=== PATIENT | male | born 1975 | race Caucasian/White ===

== ENCOUNTER 2019-09-21 11:48 | Emergency (ER) | payer OTHER ==
[~2019-09-21] VITALS: Ht 175.3 cm; Wt 74.8 kg
[~2019-09-21 11:48] MED LIST: AMOX500; CYCL10 PO; DICMIS75EC PO; DOXY100 PO; HUMALOG; HYDACE5 PO; HYDACE5325 PO; HYDR1TAB94 PO; IBUP200; IBUP800 PO; INS70/30PN SC; INSUASPI SC; INSULANI; INSULANI SQ; INSULANPEN SC; LISI20 PO; LISI5 PO; METO50ER PO; NAPR550; Novolog100 UNIT/2 SC; ONDA4ODT SL; OXAYDO7.5 MG PO; OXYC5 PO; Percocet 7.5-31 EACH PO; RXHYD5325 PO; SODBIC650 PO; TRAM50 PO
[2019-09-21] MEDS ORDERED: NORTRIPTYLINE H10 MG PO (12:01)
[2019-09-21 13:10] LABS: BASOPHILS ABSOLUTE AUTO 0.05 K/mm3 (0.00-0.23); BASOPHILS PERCENT AUTO 1 % (0-2); EOSINOPHILS ABSOLUTE AUTO 0.09 K/mm3 (0.00-0.68); EOSINOPHILS PERCENT AUTO 1 % (0-6); Hematocrit 45.2 % (37.0-53.0); IMMATURE GRAN ABSOLUTE AUTO 0.03 K/mm3 (0.00-0.10); IMMATURE GRAN PERCENT AUTO 0 % (0-1); LYMPHOCYTES ABSOLUTE AUTO 2.08 K/mm3 (0.84-5.20); LYMPHOCYTES PERCENT AUTO 24 % (21-46); MONOCYTES ABSOLUTE AUTO 0.57 K/mm3 (0.16-1.47); MONOCYTES PERCENT AUTO 7 % (4-13); Mean Corpuscular HGB 27.6 pg (26.0-34.0); Mean Corpuscular HGB Conc 33.2 g/dL (31.5-36.5); Mean Corpuscular Volume 83 fL (80-100); Mean Platelet Volume 11.3 fL (9.1-12.4); NEUTROPHILS ABSOLUTE AUTO 5.81 K/mm3 (1.96-9.15); NEUTROPHILS PERCENT AUTO 67 % (41-73); Platelet Count 335 K/mm3 (150-400); RDW Coefficient Variation 11.9 % (11.7-14.2); RDW Standard Deviation 35.8 fL (35.1-46.3); Red Blood Cell Count 5.43 M/mm3 (4.30-5.90); White Blood Cell Count 8.63 K/mm3 (4.00-11.30)
[2019-09-21 13:33] LABS: Alanine Aminotransfer (ALT/SGP 85 U/L (12-78); Albumin, Blood 4.2 g/dL (3.4-5.0); Alk Phos 120 U/L (50-136); Anion Gap 4 mmol/L (6-16); Aspartate Aminotrans (AST/SGOT 56 U/L (12-37); Bilirubin, Total 0.5 mg/dL (0.1-1.0); Blood Urea Nitrogen 16 mg/dL (8-24); Bun/Creatinine Ratio 19.9 (12.0-20.0); CO2, Blood 27 mmol/L (21-32); Calcium, Blood 9.4 mg/dL (8.5-10.1); Chloride, Blood 104 mmol/L (98-108); Creatinine, Blood 0.81 mg/dL (0.60-1.20); Glomerular Filtration Rate >60 (60-); Glucose, Blood 290 mg/dL (70-99); Potassium, Blood 4.5 mmol/L (3.5-5.5); Sodium, Blood 135 mmol/L (136-145); Total Protein, Blood 8.2 g/dL (6.4-8.2); Troponin I <0.015 ng/mL (0.000-0.040)
== END 2019-09-21 16:02 | disposition home or self-care (01) ==
LOC: ER 11:48
PROVIDERS: Emergency Medicine
DX: S22.32XA Fracture of one rib, left side, initial encounter for closed fracture (principal); E11.9 Type 2 diabetes mellitus without complications; F17.220 Nicotine dependence, chewing tobacco, uncomplicated; Z79.899 Other long term (current) drug therapy; W19.XXXA Unspecified fall, initial encounter
CPT/HCPCS: 36415; 71046; 80053; 84484; 85025; 85379; 93005; 93010; 99284-25

== ENCOUNTER → 2020-02-09 | Outpatient (CLI) | payer OTHER ==
[~2020-02-09] MED LIST changes: +NORTRIPTYLINE H10 MG PO
== END | disposition home or self-care (01) ==
LOC: LAB SRC 10:00 → LAB SHORT 10:00
DX: E10.65 Type 1 diabetes mellitus with hyperglycemia (principal)
CPT/HCPCS: 82043

== ENCOUNTER 2020-03-06 15:29 | Emergency (ER) | payer OTHER ==
[~2020-03-06] VITALS: Ht 175.3 cm; Wt 79.4 kg
[2020-03-06] MEDS ORDERED: Norco 5-325 Ta1 EACH PO (18:29)
[2020-03-06] MEDS ORDERED: CYCL10 PO (18:29)
== END 2020-03-06 18:45 | disposition home or self-care (01) ==
LOC: ER 15:29
DX: M54.5 Low back pain (principal); E11.40 Type 2 diabetes mellitus with diabetic neuropathy, unspecified; F17.220 Nicotine dependence, chewing tobacco, uncomplicated; Z79.899 Other long term (current) drug therapy
CPT/HCPCS: 72100; 96372; 99283-25; A9270; A9270-GY; J1885

== ENCOUNTER 2020-03-23 02:04 | Emergency (ER) | payer OTHER ==
[~2020-03-23] VITALS: Ht 175.3 cm; Wt 79.8 kg
[~2020-03-23 02:04] MED LIST changes: +Norco 5-325 Ta1 EACH PO
[2020-03-23] MEDS ORDERED: PRAMIPEXOLE0.125 MG PO (02:28)
[2020-03-23] MEDS ORDERED: ATOR80 PO (02:28)
[2020-03-23] MEDS ORDERED: BISOPROLOL-HCT1 EACH PO (02:28)
[2020-03-23] MEDS ORDERED: HUMALOG100 UNIT/1 (02:29)
[2020-03-23] MEDS ORDERED: GABA300 PO (02:29)
[2020-03-23] MEDS ORDERED: BASAGLAR K100 UNIT/7 SQ (02:29)
[2020-03-23] MEDS ORDERED: AMOCLA875 PO (03:10)
[2020-07-03] MEDS ORDERED: Norco 5-325 Ta1 EACH PO (22:12)
[2020-07-03] MEDS ORDERED: ONDA4ODT MM (22:12)
== END 2020-03-23 03:35 | disposition home or self-care (01) ==
LOC: ER 02:04
DX: K02.9 Dental caries, unspecified (principal); K08.89 Other specified disorders of teeth and supporting structures; E11.9 Type 2 diabetes mellitus without complications; I10 Essential (primary) hypertension; F17.220 Nicotine dependence, chewing tobacco, uncomplicated; Z79.899 Other long term (current) drug therapy; Z79.4 Long term (current) use of insulin
CPT/HCPCS: 96372; 99283-25; A9270; J1885

== ENCOUNTER 2020-04-13 07:36 | Emergency (ER) | payer OTHER ==
[~2020-04-13] VITALS: Ht 175.3 cm; Wt 81.2 kg
[~2020-04-13 07:36] MED LIST changes: +AMOCLA875 PO; +ATOR80 PO; +BASAGLAR K100 UNIT/7 SQ; +BISOPROLOL-HCT1 EACH PO; +GABA300 PO; +HUMALOG100 UNIT/1; +PRAMIPEXOLE0.125 MG PO
[2020-04-13] MEDS ORDERED: HYDR1TAB94 PO (07:52)
[2020-07-03] MEDS ORDERED: Norco 5-325 Ta1 EACH PO (22:12)
[2020-07-03] MEDS ORDERED: ONDA4ODT MM (22:12)
== END 2020-04-13 08:20 | disposition home or self-care (01) ==
LOC: ER 07:36
DX: K08.89 Other specified disorders of teeth and supporting structures (principal); I10 Essential (primary) hypertension; E11.40 Type 2 diabetes mellitus with diabetic neuropathy, unspecified; F17.220 Nicotine dependence, chewing tobacco, uncomplicated; Z79.4 Long term (current) use of insulin; Z79.899 Other long term (current) drug therapy
CPT/HCPCS: 99282; A9270

== ENCOUNTER 2020-06-15 07:18 | Day surgery (SDC) | payer OTHER ==
[~2020-06-15] VITALS: Ht 175.3 cm; Wt 79.3 kg
== END 2020-06-15 09:20 | disposition home or self-care (01) ==
LOC: ORSCSDS 07:18
PROC: 0DB98ZX Excision of Duodenum, Via Natural or Artificial Opening Endoscopic, Diagnostic (ICD-10-PCS; principal; 2020-06-15)
PROC: 0DB48ZX Excision of Esophagogastric Junction, Via Natural or Artificial Opening Endoscopic, Diagnostic (ICD-10-PCS; principal; 2020-06-15)
DX: K90.0 Celiac disease (principal); K21.9 Gastro-esophageal reflux disease without esophagitis; E10.40 Type 1 diabetes mellitus with diabetic neuropathy, unspecified; E10.319 Type 1 diabetes mellitus with unspecified diabetic retinopathy without macular edema; Z79.4 Long term (current) use of insulin; E78.5 Hyperlipidemia, unspecified; I10 Essential (primary) hypertension; Z79.899 Other long term (current) drug therapy; G47.33 Obstructive sleep apnea (adult) (pediatric); I25.10 Atherosclerotic heart disease of native coronary artery without angina pectoris; F17.220 Nicotine dependence, chewing tobacco, uncomplicated
CPT/HCPCS: 82947; 88305; 88312; J0330; J0461; J2250; J2405; J2704; J7120

== ENCOUNTER 2020-07-07 15:15 | Emergency (ER) | payer OTHER ==
[~2020-07-07] VITALS: Ht 175.3 cm; Wt 78.0 kg
[~2020-07-07 15:15] MED LIST changes: +ONDA4ODT MM
[2020-07-07 15:51] LABS: BASOPHILS ABSOLUTE AUTO 0.04 K/mm3 (0.00-0.23); BASOPHILS PERCENT AUTO 1 % (0-2); EOSINOPHILS ABSOLUTE AUTO 0.07 K/mm3 (0.00-0.68); EOSINOPHILS PERCENT AUTO 1 % (0-6); Hematocrit 44.6 % (37.0-53.0); Hemoglobin 15.1 g/dL (13.5-17.5); IMMATURE GRAN ABSOLUTE AUTO 0.01 K/mm3 (0.00-0.10); IMMATURE GRAN PERCENT AUTO 0 % (0-1); LYMPHOCYTES ABSOLUTE AUTO 1.54 K/mm3 (0.84-5.20); LYMPHOCYTES PERCENT AUTO 25 % (21-46); MONOCYTES PERCENT AUTO 7 % (4-13); Mean Corpuscular HGB 28.4 pg (26.0-34.0); Mean Corpuscular HGB Conc 33.9 g/dL (31.5-36.5); Mean Corpuscular Volume 84 fL (80-100); Mean Platelet Volume 11.6 fL (9.1-12.4); NEUTROPHILS ABSOLUTE AUTO 4.13 K/mm3 (1.96-9.15); NEUTROPHILS PERCENT AUTO 67 % (41-73); Platelet Count 314 K/mm3 (150-400); RDW Coefficient Variation 11.9 % (11.7-14.2); RDW Standard Deviation 36.4 fL (35.1-46.3); Red Blood Cell Count 5.31 M/mm3 (4.30-5.90); White Blood Cell Count 6.19 K/mm3 (4.00-11.30)
[2020-07-07 16:22] LABS: Alanine Aminotransfer (ALT/SGP 39 U/L (12-78); Albumin, Blood 3.6 g/dL (3.4-5.0); Albumin/Globulin Ratio 0.9 (0.8-1.8); Alk Phos 86 U/L (50-136); Anion Gap 6 mmol/L (6-16); Aspartate Aminotrans (AST/SGOT 20 U/L (12-37); Bilirubin, Total 0.3 mg/dL (0.1-1.0); Blood Urea Nitrogen 10 mg/dL (8-24); Bun/Creatinine Ratio 12.1 (12.0-20.0); CO2, Blood 26 mmol/L (21-32); Calcium, Blood 8.9 mg/dL (8.5-10.1); Chloride, Blood 105 mmol/L (98-108); Creatinine, Blood 0.83 mg/dL (0.60-1.20); Globulin, Blood 3.9 g/dL (2.2-4.0); Glomerular Filtration Rate >60 (60-); Glucose, Blood 267 mg/dL (70-99); Potassium, Blood 4.4 mmol/L (3.5-5.5); Sodium, Blood 137 mmol/L (136-145); Total Protein, Blood 7.5 g/dL (6.4-8.2)
[2020-07-07] MEDS ORDERED: Amlodipine Besy10 MG PO (16:51)
[2020-07-07 17:07] LABS: Source, Urine Clean Catch
[2020-07-07] MEDS ORDERED: ONDA4ODT MM (17:08)
[2020-07-07 17:10] LABS: Appearance, Urine Clear (Clear); Bilirubin, Urine Neg (Neg); Blood, Urine Neg (Neg); Color, Urine Yellow (P-Yellow); Glucose Qualitative, Urine 4+ (Neg); Ketones, Urine 1+ (Neg); Leukocyte Esterase, Urine Neg (Neg); Nitrite, Urine Neg (Neg); Protein, Urine Neg (Neg); Urobilinogen, Urine 1+ (Normal)
== END 2020-07-07 17:39 | disposition home or self-care (01) ==
LOC: ER 15:15
PROVIDERS: Physician Assistant
DX: K85.90 Acute pancreatitis without necrosis or infection, unspecified (principal); E10.40 Type 1 diabetes mellitus with diabetic neuropathy, unspecified; I10 Essential (primary) hypertension; F17.220 Nicotine dependence, chewing tobacco, uncomplicated; Z88.6 Allergy status to analgesic agent; Z79.4 Long term (current) use of insulin; Z79.899 Other long term (current) drug therapy
CPT/HCPCS: 36415; 80053; 81003; 82947; 83690; 85025; 96374; 99284-25; J2405; J7030

== ENCOUNTER 2021-01-02 17:30 | Emergency (ER) | payer OTHER ==
[~2021-01-02] VITALS: Ht 175.3 cm; Wt 82.5 kg
[~2021-01-02 17:30] MED LIST changes: +Amlodipine Besy10 MG PO
[2021-01-02 18:06] LABS: BASOPHILS ABSOLUTE AUTO 0.06 K/mm3 (0.00-0.23); BASOPHILS PERCENT AUTO 1 % (0-2); EOSINOPHILS ABSOLUTE AUTO 0.05 K/mm3 (0.00-0.68); EOSINOPHILS PERCENT AUTO 1 % (0-6); Hematocrit 47.3 % (37.0-53.0); IMMATURE GRAN ABSOLUTE AUTO 0.05 K/mm3 (0.00-0.10); IMMATURE GRAN PERCENT AUTO 1 % (0-1); LYMPHOCYTES ABSOLUTE AUTO 1.97 K/mm3 (0.84-5.20); LYMPHOCYTES PERCENT AUTO 18 % (21-46); MONOCYTES ABSOLUTE AUTO 0.58 K/mm3 (0.16-1.47); MONOCYTES PERCENT AUTO 5 % (4-13); Mean Corpuscular HGB 28.6 pg (26.0-34.0); Mean Corpuscular HGB Conc 33.8 g/dL (31.5-36.5); Mean Corpuscular Volume 85 fL (80-100); NEUTROPHILS ABSOLUTE AUTO 8.18 K/mm3 (1.96-9.15); NEUTROPHILS PERCENT AUTO 75 % (41-73); Platelet Count 345 K/mm3 (150-400); RDW Standard Deviation 36.1 fL (35.1-46.3); White Blood Cell Count 10.89 K/mm3 (4.00-11.30)
[2021-01-02] MEDS ORDERED: Aspir 8181 MG PO (18:14)
[2021-01-02 18:32] LABS: Alanine Aminotransfer (ALT/SGP 147 U/L (12-78); Albumin, Blood 3.8 g/dL (3.4-5.0); Albumin/Globulin Ratio 0.9 (0.8-1.8); Alk Phos 132 U/L (50-136); Anion Gap 7 mmol/L (6-16); Aspartate Aminotrans (AST/SGOT 79 U/L (12-37); Bilirubin, Total 0.4 mg/dL (0.1-1.0); Blood Urea Nitrogen 19 mg/dL (8-24); Bun/Creatinine Ratio 19.4 (12.0-20.0); CO2, Blood 25 mmol/L (21-32); Calcium, Blood 9.6 mg/dL (8.5-10.1); Chloride, Blood 103 mmol/L (98-108); Creatinine, Blood 0.98 mg/dL (0.60-1.20); Globulin, Blood 4.1 g/dL (2.2-4.0); Glomerular Filtration Rate >60 (60-); Glucose, Blood 314 mg/dL (70-99); Potassium, Blood 4.6 mmol/L (3.5-5.5); Sodium, Blood 135 mmol/L (136-145); Total Protein, Blood 7.9 g/dL (6.4-8.2)
[2021-01-02] MEDS ORDERED: OXYACE7.5T PO (19:00)
[2021-01-02] MEDS ORDERED: ONDA4ODT MM (19:00)
== END 2021-01-02 19:43 | disposition home or self-care (01) ==
LOC: ER 17:30
PROVIDERS: Physician Assistant
DX: K85.90 Acute pancreatitis without necrosis or infection, unspecified (principal); F17.220 Nicotine dependence, chewing tobacco, uncomplicated; E78.5 Hyperlipidemia, unspecified; E10.40 Type 1 diabetes mellitus with diabetic neuropathy, unspecified; I10 Essential (primary) hypertension; Z79.899 Other long term (current) drug therapy
CPT/HCPCS: 36415; 71045; 80053; 83690; 85025; 93005; 93010; 96374; 96375; 99284-25; A9270; J1170; J2405; J3010; J7030

== ENCOUNTER 2021-06-23 17:07 | Emergency (ER) | payer OTHER ==
[~2021-06-23] VITALS: Ht 175.3 cm; Wt 78.9 kg
[~2021-06-23 17:07] MED LIST changes: +Aspir 8181 MG PO; +OXYACE7.5T PO
[2021-06-23] MEDS ORDERED: Voltaren100 GM TOP (18:28)
[2021-06-23] MEDS ORDERED: LORA.5 PO (18:28)
[2021-06-23] MEDS ORDERED: Robaxin750 MG PO (18:28)
== END 2021-06-23 18:37 | disposition home or self-care (01) ==
LOC: ER 17:07
DX: S46.811A Strain of other muscles, fascia and tendons at shoulder and upper arm level, right arm, initial encounter (principal); I10 Essential (primary) hypertension; E11.40 Type 2 diabetes mellitus with diabetic neuropathy, unspecified; E78.5 Hyperlipidemia, unspecified; F17.220 Nicotine dependence, chewing tobacco, uncomplicated; Z88.5 Allergy status to narcotic agent; Z79.899 Other long term (current) drug therapy; Z79.4 Long term (current) use of insulin; Z79.82 Long term (current) use of aspirin; X58.XXXA Exposure to other specified factors, initial encounter
CPT/HCPCS: 96372; 99282-25; A9270; J1885

== ENCOUNTER 2022-11-18 01:35 | Emergency (ER) | payer OTHER ==
[~2022-11-18] VITALS: Ht 175.3 cm; Wt 77.6 kg
[~2022-11-18 01:35] MED LIST changes: +LORA.5 PO; +Robaxin750 MG PO; +Voltaren100 GM TOP
[2022-11-18 02:21] LABS: BASOPHILS ABSOLUTE AUTO 0.06 K/mm3 (0.00-0.23); BASOPHILS PERCENT AUTO 1 % (0-2); EOSINOPHILS ABSOLUTE AUTO 0.03 K/mm3 (0.00-0.68); EOSINOPHILS PERCENT AUTO 0 % (0-6); Hematocrit 45.3 % (37.0-53.0); Hemoglobin 15.6 g/dL (13.5-17.5); IMMATURE GRAN ABSOLUTE AUTO 0.02 K/mm3 (0.00-0.10); IMMATURE GRAN PERCENT AUTO 0 % (0-1); LYMPHOCYTES ABSOLUTE AUTO 2.17 K/mm3 (0.84-5.20); LYMPHOCYTES PERCENT AUTO 32 % (21-46); MONOCYTES ABSOLUTE AUTO 0.38 K/mm3 (0.16-1.47); MONOCYTES PERCENT AUTO 6 % (4-13); Mean Corpuscular HGB 28.7 pg (26.0-34.0); Mean Corpuscular HGB Conc 34.4 g/dL (31.5-36.5); Mean Corpuscular Volume 83 fL (80-100); Mean Platelet Volume 11.2 fL (9.1-12.4); NEUTROPHILS ABSOLUTE AUTO 4.16 K/mm3 (1.96-9.15); NEUTROPHILS PERCENT AUTO 61 % (41-73); Platelet Count 342 K/mm3 (150-400); RDW Coefficient Variation 12.8 % (11.7-14.2); RDW Standard Deviation 38.2 fL (35.1-46.3); Red Blood Cell Count 5.44 M/mm3 (4.30-5.90); White Blood Cell Count 6.82 K/mm3 (4.00-11.30)
[2022-11-18 02:37] LABS: Albumin/Globulin Ratio 1.1 (0.8-1.8); Bilirubin, Total 0.2 mg/dL (0.1-1.0); Bun/Creatinine Ratio 13.9 (12.0-20.0); Calcium, Blood 8.7 mg/dL (8.5-10.1); Creatinine, Blood 0.79 mg/dL (0.60-1.20); Globulin, Blood 3.7 g/dL (2.2-4.0); Potassium, Blood 4.2 mmol/L (3.5-5.5); Total Protein, Blood 7.7 g/dL (6.4-8.2)
[2022-11-18 04:00] VITALS: BP 151/88
== END 2022-11-18 04:53 | disposition home or self-care (01) ==
LOC: ER 01:35
PROVIDERS: Emergency Medicine
DX: R53.83 Other fatigue (principal); I10 Essential (primary) hypertension; E11.9 Type 2 diabetes mellitus without complications; F17.220 Nicotine dependence, chewing tobacco, uncomplicated; Z88.5 Allergy status to narcotic agent; Z79.4 Long term (current) use of insulin; Z79.82 Long term (current) use of aspirin; Z79.899 Other long term (current) drug therapy
CPT/HCPCS: 80053; 82947; 83690; 84484; 85025; 93005; 93010; 99284-25

== ENCOUNTER 2023-02-18 22:12 | Emergency (ER) | payer OTHER ==
[~2023-02-18] VITALS: Ht 175.3 cm; Wt 77.1 kg
[2023-02-19 01:05] VITALS: BP 128/74
== END 2023-02-19 01:06 | disposition home or self-care (01) ==
LOC: ER 22:12
DX: S01.81XA Laceration without foreign body of other part of head, initial encounter (principal); E11.9 Type 2 diabetes mellitus without complications; I10 Essential (primary) hypertension; F17.220 Nicotine dependence, chewing tobacco, uncomplicated; Z88.5 Allergy status to narcotic agent; Z79.899 Other long term (current) drug therapy; Z79.4 Long term (current) use of insulin; Z79.82 Long term (current) use of aspirin; Z23 Encounter for immunization; X58.XXXA Exposure to other specified factors, initial encounter
CPT/HCPCS: 12013; 70450; 72125; 90471; 90714; 99284-25; A9270

== ENCOUNTER 2024-08-09 07:46 | Day surgery (SDC) | payer OTHER ==
[~2024-08-09] VITALS: Ht 175.3 cm; Wt 67.1 kg
[~2024-08-09 07:46] MED LIST changes: +Crestor40 MG PO; +NS 500 ML IV ONE; +[UNRECOGNIZED DRUG - OTHER]
[2024-08-09] MEDS ORDERED: NS 500 ML IV ONE (08:07)
[2024-08-09] MEDS ORDERED: Bisoprolol Fuma10 MG PO (08:09)
[2024-08-09] MEDS ORDERED: PRAM.125 PO (08:10)
[2024-08-09] MEDS ORDERED: CeFAZolin Sodium 2,000 MG VIAL ONE (08:25)
[2024-08-09] MEDS ORDERED: propofoL 20 ML IV ONE ×2 (08:37→09:03)
[2024-08-09] MEDS ORDERED: Lidocaine 1%-Epineph 1:200000 30 ML SDV INJ ONE (09:07)
[2024-08-09] MEDS ORDERED: Sodium Bicarb 8.4% Inj 1 MEQ/ML 10ML Vial XX ONE (09:07)
--- NOTE | 2024-08-09 09:28 | NUR ---
08/09/24 0928 FranklinRg pretty PT DIFFICULT TO AROUSE. BS CHECKED AND IS 89 AT 0927.
[2024-08-09 09:35] VITALS: BP 102/60
== END 2024-08-09 10:05 | disposition home or self-care (01) ==
LOC: ORSCSDS 07:46
PROVIDERS: Orthopaedic Surgery
PROC: 01N54ZZ Release Median Nerve, Percutaneous Endoscopic Approach (ICD-10-PCS; principal; 2024-08-09 09:05)
DX: G56.03 Carpal tunnel syndrome, bilateral upper limbs (principal); E10.42 Type 1 diabetes mellitus with diabetic polyneuropathy; E78.5 Hyperlipidemia, unspecified; I10 Essential (primary) hypertension; K21.9 Gastro-esophageal reflux disease without esophagitis; F17.210 Nicotine dependence, cigarettes, uncomplicated; Z79.4 Long term (current) use of insulin; Z79.82 Long term (current) use of aspirin; Z79.899 Other long term (current) drug therapy
CPT/HCPCS: 82947; J0690; J2704; J7040

== ENCOUNTER 2024-09-20 08:06 | Day surgery (SDC) | payer OTHER ==
[~2024-09-20] VITALS: Ht 175.3 cm; Wt 66.5 kg
[~2024-09-20 08:06] MED LIST changes: +Bisoprolol Fuma10 MG PO; +NS 500 ML ONE; +PRAM.125 PO
[2024-09-20] MEDS ORDERED: CeFAZolin Sodium 2,000 MG VIAL ONE (08:19)
[2024-09-20] MEDS ORDERED: Midazolam HCl 1MG / ML 2ML Vial ONE (08:35)
[2024-09-20] MEDS ORDERED: NS 500 ML IV ONE (08:46)
[2024-09-20] MEDS ORDERED: Lidocaine 1%-Epineph 1:100000 20 ML MDV INJ ONE (08:56)
--- NOTE | 2024-09-20 09:36 | NUR ---
09/20/24 0936 Elida Vicente PT SLOW TO WAKEUP UPON ARRIVAL TO STEPDOWN. VSS. PT AROUSING TO PAIN ONLY POC BG 58 @0920. PT SLEEPY BUT COOPERATIVE. PT DEXCOM READING 84. TOLERATING APPLE JUICE DR. JOHNSON MADE AWARE, INSTRUCTED TO RECHECK IN 30 MINS. TRANSFER TO THE CHAIR WITHOUT ISSUE, PT A&O, STATES FEELS ASYMPTOMATIC.
[2024-09-20 09:57] VITALS: BP 133/78
== END 2024-09-20 10:08 | disposition home or self-care (01) ==
LOC: ORSCSDS 08:06
PROVIDERS: Orthopaedic Surgery
PROC: 01N54ZZ Release Median Nerve, Percutaneous Endoscopic Approach (ICD-10-PCS; principal; 2024-09-20 09:30)
DX: G56.02 Carpal tunnel syndrome, left upper limb (principal); I10 Essential (primary) hypertension; Z96.41 Presence of insulin pump (external) (internal); K21.9 Gastro-esophageal reflux disease without esophagitis; E11.9 Type 2 diabetes mellitus without complications; Z79.4 Long term (current) use of insulin; Z79.899 Other long term (current) drug therapy
CPT/HCPCS: 82947; J0690; J2250; J2704; J7040